=== PATIENT | female | born 1985 | race Caucasian/White ===

== ENCOUNTER 2018-04-25 06:18 | Inpatient (IN) | payer BC ==
[2013-02-17 13:08] VITALS: BMI 28.3
[2018-04-25] MEDS ORDERED: Bupivacaine-Epi 0.5%-1:200,000 PF Inj ONE (07:12)
[2018-04-25] MEDS ORDERED: ceFAZolin IV 2 gm in Dextrose 2 GM/50 ML BAG IVPB ONE (07:12)
[2018-04-25] MEDS ORDERED: Sodium Chloride 0.9% 20 ML IV ONE (07:12)
[2018-04-25] MEDS ORDERED: Vasopressin 20 Units/ml Inj ONE (07:13)
[2018-04-25] MEDS ORDERED: Propofol 10 mg/ml Inj (20 ML) ONE (08:08)
[2018-04-25] MEDS ORDERED: Midazolam 2 MG/2 ML VIAL ONE (08:08)
[2018-04-25] MEDS ORDERED: ePHEDrine 50 mg/ml Inj ONE (08:20)
[2018-04-25] MEDS ORDERED: Rocuronium 10 mg/ml (5 ml) ONE (08:20)
[2018-04-25] MEDS ORDERED: Tranexamic Acid 1,000 MG in Sodium Chloride 0.9% 50 ML IV ONE (10:18)
[2018-04-25] MEDS ORDERED: Neostigmine Methylsulfate 3mg/3ml Syringe IV ONE (11:06)
[2018-04-25] MEDS ORDERED: Oxycodone/Acetaminophen 5/325 mg Tab PO PRN ×2 (11:28)
[2018-04-25] MEDS ORDERED: HYDROmorphone 0.5 mg/0.5 ml ISec IVP PRN (11:39)
[2018-04-25] MEDS: cefOXitin IV 1 gm in Dextrose 1 GM/50 ML BAG IVPB SCH ×2 (14:40→22:17)
[2018-04-25 16:21] VITALS: O2SAT 100
[2018-04-26 00:10] VITALS: RESP 20
[2018-04-26] MEDS: cefOXitin IV 1 gm in Dextrose 1 GM/50 ML BAG IVPB SCH (05:33)
[2018-04-26 06:47] LABS: BASO % 0.5 % (0.0-2.0); EOS # 0.1 K/uL (0.0-0.7); EOS % 0.9 % (0.0-4.0); HEMOGLOBIN 9.3 g/dL (11.0-16.0); LYMPH # 2.4 K/uL (1.0-4.3); LYMPH % 24.4 % (20.0-40.0); MEAN CELL VOLUME 66.5 fL (81.0-99.0); MEAN CORPUSCULAR HEMOGLOBIN 21.2 pg (27.0-31.0); MEAN CORPUSCULAR HGB CONC 31.9 g/dL (33.0-37.0); MEAN PLATELET VOLUME 7.8 fL (7.2-11.7); MONO # 0.6 K/uL (0.0-0.8); MONO % 6.3 % (0.0-10.0); NEUT # 6.6 K/uL (1.8-7.0); NEUT % 67.9 % (50.0-75.0); RBC 4.39 Mil/uL (3.80-5.20); RED CELL DISTRIBUTION WIDTH 17.5 % (11.5-14.5); WHITE BLOOD COUNT 9.7 K/uL (4.8-10.8)
[2018-04-26 07:03] LABS: ALB/GLOB RATIO 1.3 (1.0-2.1); ALBUMIN 3.6 g/dL (3.5-5.0); ALT/SGPT 20 U/L (9-52); AST/SGOT 25 U/L (14-36); BLOOD UREA NITROGEN 4 mg/dL (7-17); GFR AFRICAN-AMERICAN > 60; GFR NON-AFRICAN AMERICAN > 60
[2018-04-26 08:21] VITALS: BP 94/66; PULSE 86; TEMP 97
--- NOTE | 2018-04-26 12:19 | CP.PCM.PN ---
Subjective - Date & Time of Evaluation Date of Evaluation: 04/26/18 Time of Evaluation: 10:30 - Subjective Subjective: 32 yo female Aditted for Myomectomy Robotic Sx ad Cervical Bx Objective - Vital Signs/Intake and Output Vital Signs (last 24 hours): Temp Pulse Resp BP Pulse Ox 97.0 F L 86 20 94/66 L 100 04/26/18 08:19 04/26/18 08:19 04/26/18 08:19 04/26/18 08:19 04/26/18 08:19 Intake and Output: 04/26/18 04/26/18 06:59 18:59 Intake Total 1700 Output Total 1300 2000 Balance -1300 -300 - Medications Medications: Current Medications Ibuprofen (Motrin Tab) 600 mg PO TID PRN PRN Reason: Pain, Mild (1-3) Ketorolac Tromethamine (Toradol) 30 mg IVP Q6 KETTY Last Admin: 04/26/18 05:09 Dose: 30 mg Oxycodone/Acetaminophen (Percocet 5/325 Mg Tab) 1 tab PO Q4H PRN PRN Reason: Pain, moderate (4-7) Stop: 04/28/18 11:29 Oxycodone/Acetaminophen (Percocet 5/325 Mg Tab) 2 tab PO Q4H PRN PRN Reason: Pain, severe (8-10) Stop: 04/28/18 11:29 - Labs Labs: 04/26/18 06:39 04/26/18 06:39 - Constitutional Appears: No Acute Distress - Head Exam Head Exam: NORMAL INSPECTION - ENT Exam ENT Exam: Normal Exam - Neck Exam Neck Exam: Normal Inspection - Respiratory Exam Respiratory Exam: NORMAL BREATHING PATTERN - Cardiovascular Exam Cardiovascular Exam: REGULAR RHYTHM - GI/Abdominal Exam GI & Abdominal Exam: Normal Bowel Sounds Additional comments: Midly Distended but soft - Extremities Exam Extremities Exam: Normal Inspection - Neurological Exam Neurological Exam: Altered, Oriented x3 - Psychiatric Exam Psychiatric exam: Normal Affect, Normal Mood - Skin Skin Exam: Normal Color
--- NOTE | 2018-04-28 07:11 | OP ---
Copied To: Wei Quinones MD Attending MD: Wei Quinones MD PROCEDURE DATE: 04/25/2018 LOCATION: [facility]. SURGEON: Re Conroy MD ASSISTED BY: Wei Quinones MD PREOPERATIVE DIAGNOSES: 1. Pelvic pain. 2. Abdominal pain. 3. Abnormal uterine bleeding. 4. Cervical and broad ligament uterine fibroid. POSTOPERATIVE DIAGNOSES: 1. Pelvic pain. 2. Abdominal pain. 3. Abnormal uterine bleeding. 4. Cervical and broad ligament uterine fibroid. 5. Pelvic endometriosis. PROCEDURES PERFORMED: 1. Exam under anesthesia. 2. Diagnostic hysteroscopy. 3. Cystoscopy with bilateral ureteral catheterization. 4. Robotic da Janny laparoscopy. 5. Robotic da Janny myomectomy high complexity. 6. Excision of endometriosis. 7. Ureterolysis, to be dictated separately by Dr. Wei Quinones who performed the procedure. ANESTHESIA: General endotracheal. ESTIMATED BLOOD LOSS: Minimal. COMPLICATIONS: None. SAMPLES: Uterine fibroid and peritoneum containing endometriosis, sent to Pathology. INDICATION FOR THE PROCEDURE: The patient is a 32-year-old with a history of pelvic pain, dysmenorrhea, dyspareunia, bladder pain, abdominal pain, who was thoroughly evaluated for this problem. She was found to have presence of a fibroid, which was in the broad ligament location low on the cervical side. This was confirmed by MRI. Exam also revealed retrocervical tenderness suggestive of endometriosis. Prior to the surgery, the patient consented to the procedure and was taken to the OR. DESCRIPTION OF PROCEDURE: After adequate anesthesia was obtained, the patient was placed in the dorsal lithotomy position. She was prepped and draped and the surgeon was gowned and gloved. At this point, attention was in the vaginal area where after taking a time-out according to the hospital policy, a speculum was placed in the vagina. The anterior lip of the cervix was grasped and hysteroscope was inserted into the uterine cavity. Hysteroscopy was essential to rule out presence of a submucosal component of the fibroid where the cavity appeared to be normal without any lesions, polyps, or masses. At this point, attention after regowning and regloving was on the abdomen where an incision was made on the umbilicus. Through this incision, Veress needle was inserted. The abdomen insufflated and after appropriate insufflation was obtained, the abdominal cavity was entered utilizing a sure view technology and a trocar was inserted. At this point, it was checked for proper placement. Under direct visualization, three additional ports were inserted in left upper quadrant, left middle quadrant 12 mm in size and right upper quadrant 8 mm in size. At this point, the pelvis was visualized. It was very clear that there were some evidence of endometriosis with adhesions involving the anterior reflection of the bladder as well as the posterior cul-de-sac. There was a large 6 to 7 cm fibroid in the broad ligament area in the cervical area. Given the complexity of the procedure, at this point the attention was again in the bladder area where a cystoscopy was performed in order to inject IC-Green into the ureters. At this point, under direct visualization, a cystoscope was inserted into the bladder utilizing a 5-Angolan open-ended catheter, ureters were catheterized and all the way to the distal ureters 5 mL of IC-Green were injected. At this point, a 16-Angolan Melendrez was placed in the bladder. Attention at this point was again on the abdomen where after regowning and regloving, the da Janny Xi robot was docked. At this point, the procedure was commenced. The fibroid was in a difficult position as it was large displacing the uterus from the right side towards the left side and low impinging on both the bladder as well as on the vessels on the right ureter. During the cystoscopy, we visualized the fact that the fibroid was also impinging on the bladder. At this point, an incision was made on the peritoneum above the ureter and the broad ligament and this incision was then extended along the peritoneum both cranially and caudally developing a bladder flap. Due to the difficulty in accessing the fibroid, the round ligament on the right hand side had to be coagulated and cut. At this point, we were able to identify the fibroid and slowly elevate it. A robotic tenaculum was placed on the fibroid and the fibroid was gently elevated. At this point, an extremely meticulous dissection was performed first dissecting the fibroid from its posterior attachments in the deep right perivesical space and then progressively laterally. This was done with being extremely careful to coagulate every small bleeder and controlling the bleeding throughout the time utilizing a coagulating procedure utilizing bipolar and scissors. Visually in the [id number] fashion, we arrived on to the bottom the fibroid by the right cervix given the fact the fiber was mostly exhophitic position, there was no need to suture close any muscular layer on the fibroid of the right or on the cervix. Throughout the procedure, progressive attention was made by dissecting out the right ureter utilizing fluorescent technology. Dr. Quinones was handed the console and performed this part and will dictate this separately. The fibroid at this point was removed and attention was then on the left hand side where an area of endometriosis was identified. Dr. Quinones was called in to dissect the left pelvic sidewall and dissect the left ureter and he will dictate this part separately. At this point, an area of endometriosis in the left peritoneal wall was then dissected out and the left uterosacral ligament and sent to Pathology. Additional edges were cut anteriorly between the bladder and the anterior aspect of the uterus. At this point, hemostasis was excellent. A 0 Vicryl suture was used to place it on the fibroid and to use for traction and the fibroid was progressively pulled and externalized through the umbilical incision, which was slightly enlarging in order to extract the fibroid. At this point, the da Janny Xi robot was undocked and the incisions were closed utilizing 0 PDS for the fascia and 4-0 Monocryl for the skin. At the end of the procedure, all instruments and counts were correct. The patient tolerated the procedure well and was taken to the recovery room in excellent condition. Wei Quinones MD GIANFRANCO
--- NOTE | 2018-04-28 07:15 | OP ---
Copied To: Wei Quinones MD Attending MD: Wei Quinones MD PROCEDURE DATE: 04/25/2018 SURGEON: Wei Quinones M.D. ASSISTED BY: Re Conroy M.D. PREOPERATIVE DIAGNOSES: Pelvic pain, dysmenorrhea, dyspareunia, uterine fibroid, and pelvic endometriosis. POSTOPERATIVE DIAGNOSES: Pelvic pain, dysmenorrhea, dyspareunia, uterine fibroid, and pelvic endometriosis. PROCEDURE PERFORMED: Bilateral da Janny robotic ureterolysis. COMPLICATIONS: None. INDICATION FOR THE PROCEDURE: I was called by Dr. Conroy to perform a ureterolysis and a very complex myomectomy as well as excision of endometriosis. DESCRIPTION OF THE PROCEDURE: As I said in the consult, I observed that Dr. Conroy had already performed a cystoscopy and injection of IC-Green dye. Both ureters were clearly visible on robotic laparoscopy. The right ureter was immediately identified and progressively dissected off from the peritoneal sidewall to facilitate the dissection of the broad ligament right fibroid. On the left hand side after elevating the ovaries, the retroperitoneum was entered and the peritoneum was progressively dissected off and the uterus lateralized all the way down to the ovarian fossa. peritoneum containing endometriosis was then excised. Throughout the procedure, the ureters were kept under the correct course of visualization utilizing firefly technology. At this point, the procedure was completed and the da Janny console was handed back to Dr. Conroy. Wei Quinones MD MTDJames
== END 2018-04-26 11:30 | disposition home or self-care (01) | DRG 743 ==
LOC: C.SDS 06:18 → EDSTATUS 07:45 → C.4M 11:26
PROVIDERS: ADMIT Obstetrics & Gynecology; ATTEND Obstetrics & Gynecology
PROC: 0DBW4ZZ Excision of Peritoneum, Percutaneous Endoscopic Approach (ICD-10-PCS; 2018-04-25)
PROC: 0UJD8ZZ Inspection of Uterus and Cervix, Via Natural or Artificial Opening Endoscopic (ICD-10-PCS; 2018-04-25)
PROC: 8E0W4CZ Robotic Assisted Procedure of Trunk Region, Percutaneous Endoscopic Approach (ICD-10-PCS; 2018-04-25)
PROC: 0UB94ZZ Excision of Uterus, Percutaneous Endoscopic Approach (ICD-10-PCS; 2018-04-25)
PROC: 0T788DZ Dilation of Bilateral Ureters with Intraluminal Device, Via Natural or Artificial Opening Endoscopic (ICD-10-PCS; principal; 2018-04-25 07:45)
DX: N80.3 Endometriosis of pelvic peritoneum (principal); D28.2 Benign neoplasm of uterine tubes and ligaments; D25.9 Leiomyoma of uterus, unspecified; R10.2 Pelvic and perineal pain; N93.9 Abnormal uterine and vaginal bleeding, unspecified; N94.10 Unspecified dyspareunia; N94.6 Dysmenorrhea, unspecified; R10.9 Unspecified abdominal pain